=== PATIENT | female | born 1935 | race Caucasian/White ===

== ENCOUNTER 2019-03-12 06:56 | Inpatient (IN) | payer MEDICARE, OTHER ==
[2019-03-12] MEDS ORDERED: PROPOFOL 200 MG/20 ML VIAL ONE (09:37)
[2019-03-12] MEDS ORDERED: PHENYLEPHRINE-NS 100 MCG/ML 10 ML SYRINGE ONE (09:37)
--- NOTE | 2019-03-12 10:09 | RAD ---
XR Chest 1 View Portable History: Line placement Comparison: CTA March 12, 2019 Findings: There is abnormal elevation of the left hemidiaphragm. Severe scoliotic changes. Right IJ c entral venous catheter tip sits at the inferior SVC. No pneumothorax. Impression: Uncomplicated placement right IJ central venous catheter.
[2019-03-12] MEDS ORDERED: Bisacodyl 5 MG TAB PO PRN (11:21)
[2019-03-12] MEDS ORDERED: Ondansetron PF 4 MG/2 ML Vial IVP PRN (11:21)
--- NOTE | 2019-03-12 13:37 | HP ---
PRIMARY CARE PROVIDER: None. CHIEF COMPLAINT: Abdominal pain. HISTORY OF PRESENT ILLNESS: Ms. Cazares is a pleasant 83-year-old lady, who was seen at [facility] on March 12, 2019, following transfer from emergency room at [place]. She reports that she had abdominal pain yesterday starting around 4:00 p.m. She describes it as epigastric, radiating around her body to her flanks. She describes it as sharp, accompanied by nausea. She reports vomiting once. She denies any fever. She denies any chest pain. She reports that the pain is worse with moving around and lying still makes the pain better. It is currently 6/10. REVIEW OF SYSTEMS: All systems were reviewed and found to be negative except for the pertinent positives mentioned above. PAST MEDICAL HISTORY: Coronary artery disease, nephrolithiasis, and scoliosis. PAST SURGICAL HISTORY: Coronary artery bypass graft and section. FAMILY HISTORY: No family history of premature coronary artery disease. SOCIAL HISTORY: No history of tobacco use, alcohol use, or recreational drug use. ALLERGIES: NO KNOWN DRUG ALLERGIES. CURRENT MEDICATIONS: 1. Aspirin 81 mg daily. 2. Ferrous sulfate. PHYSICAL EXAMINATION: GENERAL: On examination, Ms. Cazares is awake and alert, not in acute distress. VITAL SIGNS: Blood pressure is 100/59, pulse 91, respiratory rate 16, and oxygen saturation 98% on room air. Earlier, she had blood pressure of 85/57, pulse 121, and respiratory rate of 24. EYES: No scleral icterus. No conjunctival pallor. ENT: Moist mucosal membranes. No oropharyngeal erythema or exudates. NECK: Supple, nontender. Trachea is midline. RESPIRATORY: Accessory muscles of breathing are not active. Chest wall movements are symmetric bilaterally. Lungs are clear to auscultation without wheeze, rhonchi, or crepitations. CARDIOVASCULAR: S1 and S2 are heard, regular. Peripheral pulses palpable. ABDOMEN: Soft, nontender. Bowel sounds heard. NEUROLOGIC: Cranial nerves II through XII are intact. MUSCULOSKELETAL: Power is 5/5 in all 4 extremities. SKIN: No rashes. LYMPHATIC: No cervical lymphadenopathy. PSYCHIATRIC: Normal mood. Normal affect. The patient is oriented to person, place, and time. DIAGNOSTIC DATA: Ms. Cazares's labs and investigations were reviewed. I reviewed her electrocardiogram, which shows sinus tachycardia, no ST changes to suggest an acute coronary syndrome. I also reviewed her chest x-ray, which does not show any pulmonary infiltrates. CT scan of the abdomen and pelvis without contrast showed left-sided hydronephrosis and hydroureter without definite obstructing calculus. She also had diverticulosis, without evidence of diverticulitis. CT dissection protocol showed extensive atherosclerosis without major branch occlusion of the aorta. She has short segment moderate stenosis of the infrarenal abdominal aorta due to noncalcified plaque. She also has left-sided hydronephrosis and slightly decreased enhancement of the right kidney when compared to the contralateral side secondary to obstruction. She has white count with 14,700 white cells, of which 80% are neutrophils and 17% are band neutrophils. Hemoglobin and platelet count are normal. D-dimer is elevated at 2.65. She has normal sodium, normal potassium, and normal creatinine. Lactic acid is elevated at 2.4. LFTs are unremarkable. Urinalysis is positive for blood, nitrite, and leukocyte esterase. ASSESSMENT AND PLAN: Ms. Cazares is a pleasant 83-year-old lady, who was seen at [facility] on March 12, 2019. Her problem list includes: 1. Severe sepsis: Ms. Cazares is presenting with severe sepsis secondary to urinary tract infection. She will be admitted to the hospital for further management. Initially, there was concern for septic shock because she was not responding to fluid resuscitation. She had a central line placed. However, she has not needed pressors. 2. Urinary tract infection: The patient will be treated with ceftriaxone. 3. Hydronephrosis: The patient has hydronephrosis on the left side. Urology Service will be consulted for opinion and help with management. 4. Coronary artery disease: This appears to be stable. Many thanks for allowing me to participate in your the patient's care. Please feel free to contact me with any questions or concerns. LEVEL OF RISK: High. LEVEL OF COMPLEXITY: High. Job ID: [id number]
--- NOTE | 2019-03-12 13:49 | CON ---
DATE OF CONSULTATION: 03/12/2019 HISTORY OF PRESENT ILLNESS: Ms. Cazares is an 83-year-old female, who I have been asked to see by the Hospitalist Service for evaluation regarding sepsis. She is actually not in septic shock. She has been given fluids and her blood pressure is now normalized. She is conversant. She initially had some abdominal side pain. Now, her pain limits her neck and she feels much better after receiving fluids. PAST MEDICAL HISTORY: Remarkable for, 1. 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 Those rods fractured about 2 years ago. 2. Coronary artery disease, requiring bypass grafting surgery. SOCIAL HISTORY: Nonsmoker. Does not consume alcohol. Does not use illicit drugs. ALLERGIES: NONE. MEDICATIONS: Prior to admission, baby aspirin and some [id number] medication. REVIEW OF SYSTEMS: Otherwise, negative. PHYSICAL EXAMINATION: VITAL SIGNS: Temperature 99.7, pulse now in the 90s, blood pressure 139/79, and O2 saturation in the mid 90s on room air. GENERAL: She is awake, alert, and in no distress. HEENT: Unremarkable. NECK: She has a right IJ central line in place. LUNGS: She has diminished breath sounds on the left side, clear on the right. She has old midsternal wound, which is well healed. CARDIAC: S1 and S2. Regular. ABDOMEN: Soft and nontender. EXTREMITIES: No edema. IMAGING DATA: Her chest x-ray is noted for a profoundly elevated left hemidiaphragm with extensive kyphoscoliosis with all structures twisted toward the right. LABORATORY DATA: White blood cell count 14.7, hematocrit 48.2, and platelet count 221, bands 17% noted. Sodium 143, potassium 3.8, chloride 110, CO2 of 20, BUN 16, and creatinine 0.9. Urinalysis demonstrates large number of white blood cells. ASSESSMENT: Urosepsis. RECOMMENDATIONS: I would recommend IV antibiotics and IV fluids. Did not require vasopressors at this time. Job ID: [id number]
[2019-03-12] MEDS: Sodium Chloride 0.9% 1,000 ML IV SCH ×2 (16:04→21:26)
[2019-03-12] MEDS: cefTRIAXone\\ROCEPHIN 1 GM in Sodium Chloride 0.9% 100 ML IVPB SCH (16:08)
[2019-03-12 16:19] VITALS: BMI 25.6
[2019-03-12] MEDS ORDERED: Iothalamate Meglumine 60% 50 ML VIAL FS ONE (17:23)
[2019-03-12] MEDS ORDERED: Fentanyl 100 MCG/2 ML VIAL ONE ×2 (17:35→19:20)
[2019-03-12] MEDS ORDERED: Promethazine HCl 25 MG/ML VIAL SLOW IVP PRN (19:11)
[2019-03-12] MEDS ORDERED: Ondansetron HCl/PF 4 MG/2 ML Vial IVP PRN (19:11)
[2019-03-12] MEDS ORDERED: Promethazine HCl 25 MG/ML VIAL IM PRN (19:11)
[2019-03-12] MEDS ORDERED: Ondansetron PF 4 MG/2 ML Vial ONE (19:34)
[2019-03-12] MEDS ORDERED: Acetaminophen 500 MG TAB PO SCH (22:00)
--- NOTE | 2019-03-13 01:19 | CON ---
DATE OF CONSULTATION: 03/12/2019 CHIEF COMPLAINT: Gross hematuria, abdominal pain, vomiting. HISTORY OF PRESENT ILLNESS: Ms. Cazares is an 83-year-old female who presented to [place] [facility] with abdominal pain. The pain was from the mid abdomen, radiating both to the right and left flanks. She also had some nausea. On evaluation in the emergency room, she was noted to have some mild hypotension with a systolic blood pressure of 100. Urinalysis was abnormal, consistent with urinary tract infection. She underwent CT scan imaging that demonstrated left-sided hydronephrosis. The left ureter did not appear dilated and there were no obstructing stones seen. For this reason, urologic consultation was obtained. She denies any prior urologic history. She has not had stone disease in the past. She has had no prior urologic surgery. PAST MEDICAL HISTORY: Coronary artery disease, scoliosis. PAST SURGICAL HISTORY: Coronary artery bypass graft, , Diaz nicolasa placement for scoliosis. FAMILY HISTORY: Noncontributory. SOCIAL HISTORY: She is . Her is 89 years old. She is a nonsmoker. Denies excessive alcohol use. ALLERGIES: NO KNOWN DRUG ALLERGIES. REVIEW OF SYSTEMS: RESPIRATORY: She denies any new changes in her breathing pattern. She does have long-term breathing issues from her scoliosis. She has never been a smoker. CARDIOVASCULAR: Denies chest pain or palpitations. GASTROINTESTINAL: Denies chronic constipation or diarrhea. GENITOURINARY: Please see history of present illness. NEUROLOGIC: No focal symptoms to suggest stroke. PHYSICAL EXAM: VITALS: Temperature- 100.2 Blood Pressure 138/82 Pulse - 100 ABDOMEN: soft, no tender, no peritoneal signs CHEST: no wheezing EXTREMITIES: no edema PELVIC: deferred LABORATORY DATA: Urinalysis demonstrates 3+ bacteria, large leukocyte esterase positive, 11-20 white cells, large amount of blood. CBC, white count 14.7, hematocrit 48.2, hemoglobin is 15.2. Chemistry, creatinine 0.96. IMPRESSION: Ms. Cazares is an 83-year-old female with signs and symptoms suggesting urinary tract infection. Cultures have been sent. She has been given vancomycin, gentamicin and ceftriaxone prior to transfer to [facility]. CT scan demonstrates left-sided hydronephrosis of unclear etiology. She is not having colicky left-sided flank pain at this time. There is no evidence of stones. Because of the signs of infection, I have recommended a left ureteral stent placement. The procedure, potential limitations, alternatives, and complications have been discussed with her. PLAN: Cystoscopy, left double-J stent placement. Job ID: [id number] MTDD
--- NOTE | 2019-03-13 02:31 | OP ---
DATE OF PROCEDURE: 03/12/2019 PREOPERATIVE DIAGNOSES: Left hydronephrosis, bacteriuria. POSTOP DIAGNOSES: Left hydronephrosis, bacteriuria. PROCEDURE: Cystoscopy, left double-J stent placement. ANESTHESIA: General. INDICATIONS: Ms. Cazares is an 83-year-old female with left-sided hydronephrosis consistent with urinary tract infection. She presented to [place] ER with abdominal pain, nausea and vomiting. CT scan demonstrated left-sided hydronephrosis. There was no obvious stone seen. She is being brought to the operating room for drainage with left double-J stent placement. DETAILS OF PROCEDURE: Patient given general anesthesia and IV antibiotics. She was sterilely prepped and draped in a lithotomy position. Cystoscope was passed into the bladder. Bladder was examined in its entirety. There were no mucosal lesions noted. The left ureteral orifice was intubated with a floppy tip guidewire, which was passed cephalad under fluoroscopic control. Retrograde pyelography was utilized to outline the ureter, which was somewhat torturous, because of her long-standing scoliosis. She had left-sided hydronephrosis with persistent contrast in the left renal pelvis from her contrast CT scan hours prior. Double-J stent was passed into the left ureter and coiled in the left renal pelvis and the bladder as determined fluoroscopically and cystoscopically. The stent was a 4.8 x 24 cm. The bladder was drained. Cystoscope was removed. The patient tolerated procedure well. She was transported from the operative room to recovery room in stable condition. COMPLICATION: None. ESTIMATED BLOOD LOSS: Minimal. DISPOSITION: 1. The patient to be treated with antibiotic therapy based on culture results. 2. She will need to return to the operating room in 2-4 weeks for stent removal and flexible ureteroscopy to determine the source of her hydronephrosis. Job ID: [id number]
[2019-03-13] MEDS: Acetaminophen 325 MG TAB PO PRN ×4 (03:46→23:31)
[2019-03-13 04:21] LABS: #Monocytes 0.8 thou/uL (0.11-0.59); #Neutrophils 12.1 thou/uL (1.40-6.50); %Basophils 0.1 % (0.0-1.0); %Eosinophils 0.2 % (0.0-10.0); %Lymphocytes 7.3 % (21.0-51.0); %Monocytes 5.7 % (0.0-10.0); %Neutrophils 86.7 % (42.0-75.0); Hemoglobin 11.6 g/dL (12.0-16.0); Mean Corpuscular HGB CONC 34.6 g/dL (32.0-36.0); Mean Corpuscular Hemoglobin 32.1 pg (27.0-31.0); Mean Corpuscular Volume 92.7 fL (78.0-98.0); Mean Platelet Volume 8.3 fL (7.4-10.4); Platelet Count 135 thou/uL (130-400); RBC Distribution Width 13.5 % (11.5-14.5); Red Blood Cell (RBC) Count 3.62 mill/uL (4.20-5.40); White Blood Cell (WBC) Count 13.9 thou/uL (4.8-10.8)
[2019-03-13 04:39] LABS: Anion Gap 10 mmol/L (10-20); BUN (Urea Nitrogen) 15 mg/dL (9.8-20.1); Calc. Creatinine Clearance 52 mL/min (70-130); Carbon Dioxide 21 mmol/L (23-31); Chloride 114 mmol/L (98-107); Estimated GFR-MDRD 72; Glucose 80 mg/dL (83-110); Potassium 4.3 mmol/L (3.5-5.1); Sodium 141 mmol/L (136-145)
--- NOTE | 2019-03-13 07:31 | RAD ---
EXAM: XR IVP Retrograde PROVIDED CLINICAL HISTORY: Hydronephrosis COMPARISON: CT 03/12/2019 358 AM FINDINGS: Multiple spot fluoroscopic images of the abdomen are submitted, demonstrating persistent contrast mat erial within a dilated left renal pelvis. Retrograde opacification of the left ureter demonstrates a critical narrowing in the region of the proximal left ureter/UPJ junction. The evaluation on the [facility] submitted images is limited due to respiratory motion. Please correlate with real-time findings. Subsequent images demonstrate placement of left ureteral stent. IMPRESSION: As above.
[2019-03-13] MEDS: Sodium Chloride 0.9% 1,000 ML IV SCH ×3 (08:40→23:29)
[2019-03-13] MEDS: Enoxaparin Sodium 40 MG/0.4 ML SYRINGE SC SCH (09:22)
--- NOTE | 2019-03-13 10:07 | PRG ---
DATE OF SERVICE: 03/13/2019 SUBJECTIVE: The patient feels better today. She had a stent placed yesterday. OBJECTIVE: VITAL SIGNS: Temperature 97.9, pulse 90, respirations 18, O2 saturations 95% on 2 L, and blood pressure 116/62. HEENT: Unremarkable. NECK: No adenopathy or JVD. She has a right IJ central line in place. CARDIAC: S1 and S2. Regular. LUNGS: Clear. ABDOMEN: Soft. EXTREMITIES: No edema. LABORATORY DATA: White blood count 13.9, hematocrit 33.6, and platelet count 135. Sodium 141, potassium 4.3, chloride 114, CO2 of 21, BUN 15, creatinine 0.7, and glucose 80. She is growing out E coli from her cultures. ASSESSMENT: Escherichia coli/urosepsis. PLAN: I would recommend discontinuing the central line as soon as possible. Continue the antibiotics. No further Pulmonary recommendations. We will sign off. Job ID: [id number]
[2019-03-13] MEDS: cefTRIAXone\\ROCEPHIN 1 GM in Sodium Chloride 0.9% 100 ML IVPB SCH (11:18)
--- NOTE | 2019-03-13 13:47 | PDOC.HOSPP ---
- Subjective Encounter Date: 03/13/19 Encounter Time: 07:20 Subjective: Pt seen for followup re: UTI. feels better, no complaints. - Objective Vital Signs & Weight: Vital Signs (12 hours) Temp Pulse Resp BP Pulse Ox 03/13/19 11:42 98.4 F 100 25 H 131/72 98 03/13/19 07:38 97.9 F 90 18 116/62 95 03/13/19 03:47 98.5 F 98 18 105/55 L 95 Weight Weight 127 lb I&O: 03/12/19 03/13/19 03/14/19 06:59 06:59 06:59 Intake Total 1000 Output Total 675 Balance 325 Result Diagrams: 03/13/19 03:31 03/13/19 03:31 Additional Labs: Labs and MARs reviewed by me EKG Reviewed by me: Yes (Tele: NSR) Hospitalist ROS - Review of Systems Cardiovascular: denies: chest pain, palpitations, orthopnea, paroxysmal noc. dyspnea, edema, light headedness Gastrointestinal: denies: nausea, vomiting, abdominal pain, diarrhea, constipation, melena, hematochezia - Medication Medications: Active Medications Generic Name Dose Route Start Last Admin Trade Name Freq PRN Reason Stop Dose Admin Acetaminophen 650 mg 03/12/19 21:48 03/13/19 11:18 Tylenol PO 650 mg Q6H PRN Administration Fever>101/(Mi/Mod/Sev) Pain Enoxaparin Sodium 40 mg 03/13/19 09:00 03/13/19 09:22 Lovenox SC 40 mg 0900 RAMILA Administration Ceftriaxone Sodium 1 gm/ 100 mls @ 200 mls/hr 03/12/19 12:00 03/13/19 11:18 Sodium Chloride IVPB 100 mls 1200 RAMILA Administration Sodium Chloride 1,000 mls @ 100 mls/hr 03/12/19 11:30 03/13/19 08:40 Normal Saline 0.9% IV Not Given .Q10H RAMILA - Exam General Appearance: NAD Eye: anicteric sclera ENT: moist mucosa Neck: supple Heart: RRR Respiratory: CTAB Gastrointestinal: soft, non-tender Extremities: no edema Skin: no rashes Musculoskeletal - other findings: scoliosis Psychiatric: normal affect, normal behavior Hosp A/P (1) UTI (urinary tract infection) Status: Acute (2) Hydronephrosis Code(s): N13.30 - UNSPECIFIED HYDRONEPHROSIS Status: Acute (3) CAD (coronary artery disease) Code(s): I25.10 - ATHSCL HEART DISEASE OF [place] CORONARY ARTERY W/O ANG PCTRS Status: Chronic (4) Sepsis Code(s): A41.9 - SEPSIS, UNSPECIFIED ORGANISM Status: Resolved - Plan plan discussed w/ family, continue antibiotics, out of bed/ambulate continue ceftriaxone, follow urine culture. s/p ureteric stent. CAD stable. Mobilize pt. Transfer to medical floor.
[2019-03-14 04:38] LABS: #Eosinphils 0.1 thou/uL (0.0-0.7); #Lymphocytes 0.7 thou/uL (1.20-3.40); #Monocytes 0.8 thou/uL (0.11-0.59); %Basophils 0.4 % (0.0-1.0); %Eosinophils 1.4 % (0.0-10.0); %Lymphocytes 7.4 % (21.0-51.0); %Monocytes 8.2 % (0.0-10.0); %Neutrophils 82.7 % (42.0-75.0); Hemoglobin 11.2 g/dL (12.0-16.0); Mean Corpuscular HGB CONC 33.5 g/dL (32.0-36.0); Mean Corpuscular Hemoglobin 31.1 pg (27.0-31.0); Mean Corpuscular Volume 92.7 fL (78.0-98.0); Mean Platelet Volume 8.1 fL (7.4-10.4); Platelet Count 132 thou/uL (130-400); RBC Distribution Width 13.4 % (11.5-14.5); Red Blood Cell (RBC) Count 3.61 mill/uL (4.20-5.40); White Blood Cell (WBC) Count 9.7 thou/uL (4.8-10.8)
[2019-03-14 05:23] LABS: Anion Gap 10 mmol/L (10-20); BUN (Urea Nitrogen) 10 mg/dL (9.8-20.1); Calc. Creatinine Clearance 57 mL/min (70-130); Calcium 8.4 mg/dL (7.8-10.44); Carbon Dioxide 23 mmol/L (23-31); Chloride 111 mmol/L (98-107); Estimated GFR-MDRD 80; Glucose 73 mg/dL (83-110); Potassium 3.9 mmol/L (3.5-5.1); Sodium 140 mmol/L (136-145)
[2019-03-14] MEDS: Enoxaparin Sodium 40 MG/0.4 ML SYRINGE SC SCH (08:21)
[2019-03-14] MEDS: Acetaminophen 325 MG TAB PO PRN (08:21)
[2019-03-14] MEDS ORDERED: Fioricet 325/50/40 mg Tablet PO SCH (10:15)
[2019-03-14] MEDS: cefTRIAXone\\ROCEPHIN 1 GM in Sodium Chloride 0.9% 100 ML IVPB SCH (10:59)
[2019-03-14] MEDS: Sodium Chloride 0.9% 1,000 ML IV SCH ×2 (11:00→23:15)
--- NOTE | 2019-03-14 16:41 | PDOC.HOSPP ---
- Subjective Encounter Date: 03/14/19 Encounter Time: 08:20 Subjective: Pt seen for followup re: UTI. Feels better. has headache. - Objective Vital Signs & Weight: Vital Signs (12 hours) Temp Pulse Resp BP Pulse Ox 03/14/19 12:00 97.5 F L 87 22 H 127/79 98 03/14/19 08:11 98.5 F 92 16 136/76 96 Weight Weight 131 lb 6.4 oz I&O: 03/13/19 03/14/19 03/15/19 06:59 06:59 06:59 Intake Total 1000 1380 120 Output Total 675 1450 550 Balance 325 -01 -269 Result Diagrams: 03/14/19 04:16 03/14/19 04:16 Additional Labs: Labs and MARs reviewed by me. Hospitalist ROS - Review of Systems Cardiovascular: denies: chest pain, palpitations, orthopnea, paroxysmal noc. dyspnea, edema, light headedness Gastrointestinal: denies: nausea, vomiting, abdominal pain, diarrhea, constipation, melena, hematochezia - Medication Medications: Active Medications Generic Name Dose Route Start Last Admin Trade Name Freq PRN Reason Stop Dose Admin Acetaminophen 650 mg 03/12/19 21:48 03/14/19 08:21 Tylenol PO 650 mg Q6H PRN Administration Fever>101/(Mi/Mod/Sev) Pain Enoxaparin Sodium 40 mg 03/13/19 09:00 03/14/19 08:21 Lovenox SC 40 mg 0900 RAMILA Administration Ceftriaxone Sodium 1 gm/ 100 mls @ 200 mls/hr 03/12/19 12:00 03/14/19 10:59 Sodium Chloride IVPB 100 mls 1200 RAMILA Administration Sodium Chloride 1,000 mls @ 100 mls/hr 03/12/19 11:30 03/14/19 11:00 Normal Saline 0.9% IV 1,000 mls .Q10H RAMILA Administration - Exam General Appearance: NAD, awake alert Eye: anicteric sclera ENT: normocephalic atraumatic, moist mucosa Neck: supple Heart: RRR Respiratory: CTAB Gastrointestinal: soft, non-tender Psychiatric: normal affect, normal behavior Hosp A/P (1) UTI (urinary tract infection) Status: Acute (2) Hydronephrosis Code(s): N13.30 - UNSPECIFIED HYDRONEPHROSIS Status: Acute (3) Bacteremia Code(s): R78.81 - BACTEREMIA Status: Acute (4) CAD (coronary artery disease) Code(s): I25.10 - ATHSCL HEART DISEASE OF [place] CORONARY ARTERY W/O ANG PCTRS Status: Chronic (5) Sepsis Code(s): A41.9 - SEPSIS, UNSPECIFIED ORGANISM Status: Resolved - Plan continue antibiotics, PT/OT Switch to ciprofloxacin. E. coli bacteremia and UTI. CAD stable. PRN Fiorinal for headache.
[2019-03-14] MEDS: Fioricet 325/50/40 mg Tablet PO PRN ×2 (17:48→23:51)
[2019-03-14] MEDS: Ciprofloxacin 500 MG TAB PO SCH (20:38)
[2019-03-15] MEDS: Ciprofloxacin 500 MG TAB PO SCH (06:25)
[2019-03-15] MEDS: Sodium Chloride 0.9% 1,000 ML IV SCH (06:30)
[2019-03-15 07:43] LABS: #Eosinphils 0.2 thou/uL (0.0-0.7); #Lymphocytes 0.7 thou/uL (1.20-3.40); #Monocytes 0.5 thou/uL (0.11-0.59); #Neutrophils 4.8 thou/uL (1.40-6.50); %Basophils 0.5 % (0.0-1.0); %Eosinophils 3.1 % (0.0-10.0); %Monocytes 7.8 % (0.0-10.0); %Neutrophils 77.6 % (42.0-75.0); Hemoglobin 11.4 g/dL (12.0-16.0); Mean Corpuscular HGB CONC 34.6 g/dL (32.0-36.0); Mean Corpuscular Hemoglobin 31.9 pg (27.0-31.0); Mean Corpuscular Volume 92.1 fL (78.0-98.0); Mean Platelet Volume 8.1 fL (7.4-10.4); Platelet Count 149 thou/uL (130-400); Red Blood Cell (RBC) Count 3.57 mill/uL (4.20-5.40); White Blood Cell (WBC) Count 6.2 thou/uL (4.8-10.8)
[2019-03-15 07:59] VITALS: BP 159/84; TEMP 97.7
[2019-03-15 08:05] LABS: Anion Gap 12 mmol/L (10-20); BUN (Urea Nitrogen) 7 mg/dL (9.8-20.1); Calc. Creatinine Clearance 63 mL/min (70-130); Calcium 8.3 mg/dL (7.8-10.44); Carbon Dioxide 22 mmol/L (23-31); Chloride 112 mmol/L (98-107); Estimated GFR-MDRD 86; Glucose 79 mg/dL (83-110); Potassium 4.1 mmol/L (3.5-5.1); Sodium 142 mmol/L (136-145)
[2019-03-15] MEDS: Acetaminophen 325 MG TAB PO PRN (08:19)
[2019-03-15] MEDS: Enoxaparin Sodium 40 MG/0.4 ML SYRINGE SC SCH (08:19)
--- NOTE | 2019-03-15 14:05 | DIS ---
DATE OF ADMISSION: 03/12/2019 DATE OF DISCHARGE: 03/14/2019 PRIMARY CARE PROVIDER: Unknown. DISCHARGE DIAGNOSES: 1. Sepsis. 2. Sepsis secondary to urinary tract infection. 3. Bacteremia. 4. Hydronephrosis. DISCHARGE CONDITION: Condition of patient on the day of discharge stable. I assessed Ms. Cazares on the day of discharge. She denies any chest pain or shortness of breath. Vital signs are stable. S1 and S2 are heard, regular. Lungs are clear to auscultation bilaterally. CONSULTATIONS: Consultations during this hospitalization: Urology, Dr. Coats , and Pulmonary and Critical Care Medicine, Dr. Russo. HOSPITAL COURSE: Ms. Cazares is a pleasant 83-year-old lady, who was admitted to [facility] on March 12, 2019, for sepsis secondary to urinary tract infection. She was also found to have hydronephrosis. She was seen by Urology Service and underwent cystoscopy and left double-J stent placement on March 12, 2019. She will need to return to operating room in 2-4 weeks for stent removal and flexible ureteroscopy to determine the source of her hydronephrosis. Two out of 2 blood cultures and urine culture grew Escherichia coli that was pansensitive. She has been switched to ciprofloxacin and is being discharged home in a stable condition. DISCHARGE FOLLOWUP: Post acute care followup with primary care provider in 3 days' time and with Urology Service in 2-3 weeks' time. DISCHARGE MEDICATIONS: 1. Aspirin 81 mg daily. 2. Aspirin/acetaminophen as needed. 3. Iron sulfate 325 mg daily. 4. Multivitamins 1 tablet daily. 5. Ciprofloxacin 500 mg 2 times a day for 11 more days. DISCHARGE DESTINATION: Home. DIET: Regular. ACTIVITY: Ad flaco. TIME SPENT: Total amount of time spent coordinating this discharge: 32 minutes. Job ID: [id number] MTDD
== END 2019-03-15 14:44 | disposition home or self-care (01) | DRG 854 ==
LOC: ERS 06:56 → ERHOLD 08:43 → 2NO 15:49 → T4-B 03-14 10:27
PROVIDERS: ADMIT Internal Medicine; ATTEND Internal Medicine
PROC: 0T778DZ Dilation of Left Ureter with Intraluminal Device, Via Natural or Artificial Opening Endoscopic (ICD-10-PCS; principal; 2019-03-12)
PROC: BT1F1ZZ Fluoroscopy of Left Kidney, Ureter and Bladder using Low Osmolar Contrast (ICD-10-PCS; 2019-03-12)
DX: A41.51 Sepsis due to Escherichia coli [E. coli] (principal); N13.6 Pyonephrosis; R65.20 Severe sepsis without septic shock; I25.10 Atherosclerotic heart disease of native coronary artery without angina pectoris; M41.9 Scoliosis, unspecified; B96.20 Unspecified Escherichia coli [E. coli] as the cause of diseases classified elsewhere; Z95.1 Presence of aortocoronary bypass graft; Z79.82 Long term (current) use of aspirin
CPT/HCPCS: 36415; 71045; 74420; 80048; 85025; 87086; J0696; J1650; J2405; J2704; J3010; J3490

== ENCOUNTER 2023-01-12 09:34 | Inpatient (IN) | payer MEDICARE ==
[2023-01-12] MEDS ORDERED: Ondansetron ODT 4 MG TAB PO PRN (09:57)
[2023-01-12] MEDS ORDERED: Acetaminophen 325 MG TAB PO PRN (09:57)
[2023-01-12] MEDS: Sodium Chloride 0.9% 1,000 ML IV SCH ×2 (10:00→23:08)
[2023-01-12] MEDS ORDERED: Fleet Saline Enema 133 ML BOT PR SCH (11:15)
[2023-01-12 13:02] LABS: Troponin I 0.028 ng/mL (< 0.028)
[2023-01-12 13:12] VITALS: BMI 18.6
[2023-01-12] MEDS ORDERED: Meropenem 1 GM in Sodium Chloride 0.9% 100 ML IVPB SCH (14:00)
[2023-01-12 16:03] LABS: Lactic Acid 1.9 mmol/L (0.5-2.2)
[2023-01-12] MEDS: Meropenem 500 MG in Sodium Chloride 0.9% 100 ML IVPB SCH (16:36)
[2023-01-12] MEDS ORDERED: Sodium Chloride 0.9% 500 ML IV SCH (21:45)
[2023-01-12] MEDS ORDERED: HYDROcodone/Acetaminophen 5/325 mg Tablet PO PRN (22:16)
[2023-01-12] MEDS ORDERED: Morphine 2 MG/ML VIAL SLOW IVP SCH (22:30)
[2023-01-13] MEDS ORDERED: Morphine 2 MG/ML VIAL SLOW IVP SCH (03:15)
[2023-01-13 03:29] LABS: #Basophils 0.1 thou/uL (0.0-0.2); #Monocytes 1.4 thou/uL (0.11-0.59); #Neutrophils 13.4 thou/uL (1.40-6.50); %Basophils 0.3 % (0.0-1.0); %Lymphocytes 7.9 % (21.0-51.0); %Monocytes 8.7 % (0.0-10.0); %Neutrophils 80.9 % (42.0-75.0); Hematocrit 39.5 % (36.0-47.0); Hemoglobin 12.9 g/dL (12.0-16.0); Mean Corpuscular HGB CONC 32.7 g/dL (32.0-36.0); Mean Platelet Volume 9.7 fL (7.4-10.4); Platelet Count 416 10x3/uL (130-400); Red Blood Cell (RBC) Count 4.16 mill/uL (4.20-5.40); White Blood Cell (WBC) Count 16.5 10x3/uL (4.8-10.8)
[2023-01-13 03:46] LABS: Anion Gap 13 mmol/L (10-20); BUN (Urea Nitrogen) 27 mg/dL (9.8-20.1); Calc. Creatinine Clearance 33 mL/min (70-130); Carbon Dioxide 14 mmol/L (23-31); Chloride 118 mmol/L (98-107); Potassium 4.1 mmol/L (3.5-5.1); Sodium 141 mmol/L (136-145)
[2023-01-13 03:47] LABS: ALT (SGPT) 9 U/L (8-55); AST (SGOT) 13 U/L (5-34); Albumin 3.1 g/dL (3.4-4.8); Alkaline Phosphatase 72 U/L (40-110); Bilirubin, Total 0.4 mg/dL (0.2-1.2); Estimated GFR 72; Globulin 2.1 g/dL (2.4-3.5); Glucose 110 mg/dL (83-110); Magnesium 1.9 mg/dL (1.6-2.6); Protein, Total 5.2 g/dL (5.8-8.1)
[2023-01-13] MEDS: Meropenem 500 MG in Sodium Chloride 0.9% 100 ML IVPB SCH (04:28)
[2023-01-13] MEDS: Polyethylene Glycol 3350 17 GM Packet PO SCH ×2 (10:07→21:46)
[2023-01-13] MEDS: Pantoprazole 40 MG VIAL IVP SCH (10:07)
[2023-01-13] MEDS: Bisacodyl 5 MG TAB PO SCH ×2 (10:07→22:06)
[2023-01-13] MEDS: Sodium Chloride 0.9% 1,000 ML IV SCH ×2 (10:11→21:30)
[2023-01-13] MEDS: Acetaminophen 500 MG TAB PO PRN ×2 (13:15→23:37)
[2023-01-13] MEDS: Bisacodyl 10 MG SUPP PR SCH ×2 (14:26→23:37)
[2023-01-13] MEDS: Fleet Saline Enema 133 ML BOT PR SCH ×2 (15:23→23:39)
[2023-01-13] MEDS: Phenazopyridine HCl 100 MG TAB PO SCH ×3 (15:39→20:10)
[2023-01-13] MEDS: Meropenem 1 GM in Sodium Chloride 0.9% 100 ML IVPB SCH (18:24)
[2023-01-14 04:45] LABS: #Eosinphils 0.1 thou/uL (0.0-0.7); #Monocytes 0.9 thou/uL (0.11-0.59); #Neutrophils 7.3 thou/uL (1.40-6.50); %Basophils 0.2 % (0.0-1.0); %Eosinophils 0.7 % (0.0-10.0); %Lymphocytes 14.8 % (21.0-51.0); %Monocytes 8.5 % (0.0-10.0); %Neutrophils 72.5 % (42.0-75.0); Hematocrit 31.7 % (36.0-47.0); Hemoglobin 10.3 g/dL (12.0-16.0); Mean Corpuscular HGB CONC 32.5 g/dL (32.0-36.0); Mean Corpuscular Hemoglobin 30.7 pg (27.0-31.0); Mean Corpuscular Volume 94.6 fl (78.0-98.0); Mean Platelet Volume 9.8 fL (7.4-10.4); Platelet Count 376 10x3/uL (130-400); RBC Distribution Width 16.2 % (11.5-14.5); Red Blood Cell (RBC) Count 3.35 mill/uL (4.20-5.40); White Blood Cell (WBC) Count 10.1 10x3/uL (4.8-10.8)
[2023-01-14 05:09] LABS: Albumin 2.9 g/dL (3.4-4.8); Anion Gap 12 mmol/L (10-20); BUN (Urea Nitrogen) 17 mg/dL (9.8-20.1); BUN/Creatinine Ratio 23.29; Calc. Creatinine Clearance 36 mL/min (70-130); Carbon Dioxide 16 mmol/L (23-31); Chloride 122 mmol/L (98-107); Estimated GFR 81; Glucose 85 mg/dL (83-110); Phosphorus 2.2 mg/dL (2.3-4.7); Potassium 3.7 mmol/L (3.5-5.1); Sodium 146 mmol/L (136-145)
[2023-01-14] MEDS: Meropenem 1 GM in Sodium Chloride 0.9% 100 ML IVPB SCH ×2 (05:43→17:14)
[2023-01-14] MEDS: Bisacodyl 10 MG SUPP PR SCH ×3 (06:07→23:22)
[2023-01-14] MEDS: Fleet Saline Enema 133 ML BOT PR SCH ×2 (06:21→15:10)
[2023-01-14] MEDS: Acetaminophen 500 MG TAB PO PRN ×2 (06:41→18:39)
[2023-01-14] MEDS: Sodium Chloride 0.9% 1,000 ML IV SCH (06:42)
[2023-01-14] MEDS: Pantoprazole 40 MG VIAL IVP SCH (08:48)
[2023-01-14] MEDS: Polyethylene Glycol 3350 17 GM Packet PO SCH ×2 (08:48→21:54)
[2023-01-14] MEDS: Phenazopyridine HCl 100 MG TAB PO SCH ×3 (08:48→18:39)
[2023-01-14] MEDS: Bisacodyl 5 MG TAB PO SCH (08:49)
[2023-01-14] MEDS ORDERED: Electrolyte Replacement Protocol 1 EACH FS SCH (09:45)
[2023-01-14] MEDS ORDERED: Metoprolol Tartrate 5 MG/5 ML VIAL IVP SCH (09:45)
[2023-01-14] MEDS: Lactated Ringer's 1,000 ML IV SCH (10:53)
[2023-01-14 11:06] LABS: Magnesium 1.8 mg/dL (1.6-2.6)
[2023-01-14] MEDS ORDERED: Magnesium 2 GM/50 ML(in water) 2 GM in Premix 1 BAG IVPB SCH (11:30)
[2023-01-15] MEDS: Fleet Saline Enema 133 ML BOT PR SCH ×6 (00:08→20:43)
[2023-01-15] MEDS: Acetaminophen 500 MG TAB PO PRN ×3 (01:26→16:41)
[2023-01-15] MEDS ORDERED: Preparation H Suppository PR PRN (01:27)
[2023-01-15] MEDS: Lactated Ringer's 1,000 ML IV SCH ×2 (02:22→15:37)
[2023-01-15] MEDS: Bisacodyl 10 MG SUPP PR SCH ×3 (03:59→20:43)
[2023-01-15] MEDS: Meropenem 1 GM in Sodium Chloride 0.9% 100 ML IVPB SCH ×2 (04:40→16:40)
[2023-01-15 04:44] LABS: #Basophils 0.1 thou/uL (0.0-0.2); #Eosinphils 0.5 thou/uL (0.0-0.7); #Monocytes 0.7 thou/uL (0.11-0.59); #Neutrophils 6.5 thou/uL (1.40-6.50); %Basophils 0.7 % (0.0-1.0); %Eosinophils 5.3 % (0.0-10.0); %Neutrophils 70.5 % (42.0-75.0); Hematocrit 30.5 % (36.0-47.0); Hemoglobin 9.8 g/dL (12.0-16.0); Mean Corpuscular HGB CONC 32.1 g/dL (32.0-36.0); Mean Corpuscular Hemoglobin 30.3 pg (27.0-31.0); Mean Corpuscular Volume 94.4 fl (78.0-98.0); Mean Platelet Volume 9.9 fL (7.4-10.4); Platelet Count 323 10x3/uL (130-400); RBC Distribution Width 16.3 % (11.5-14.5); Red Blood Cell (RBC) Count 3.23 mill/uL (4.20-5.40); White Blood Cell (WBC) Count 9.2 10x3/uL (4.8-10.8)
[2023-01-15 05:09] LABS: Albumin 2.6 g/dL (3.4-4.8); Anion Gap 10 mmol/L (10-20); BUN (Urea Nitrogen) 12 mg/dL (9.8-20.1); BUN/Creatinine Ratio 16.44; Calc. Creatinine Clearance 36 mL/min (70-130); Calcium 7.7 mg/dL (7.8-10.44); Carbon Dioxide 18 mmol/L (23-31); Chloride 117 mmol/L (98-107); Estimated GFR 81; Glucose 96 mg/dL (83-110); Phosphorus 1.8 mg/dL (2.3-4.7); Potassium 3.2 mmol/L (3.5-5.1); Sodium 142 mmol/L (136-145)
[2023-01-15] MEDS ORDERED: Potassium Chloride 20 MEQ TAB PO SCH (08:00)
[2023-01-15] MEDS ORDERED: Magnesium Oxide 400 MG TAB PO SCH (09:09)
[2023-01-15] MEDS: Pantoprazole 40 MG VIAL IVP SCH (09:18)
[2023-01-15] MEDS: PHOS-NAK 1 PKT PACK PO SCH ×2 (09:18→17:55)
[2023-01-15] MEDS: Polyethylene Glycol 3350 17 GM Packet PO SCH ×2 (09:19→20:42)
[2023-01-15] MEDS: Phenazopyridine HCl 100 MG TAB PO SCH ×3 (15:37→20:07)
[2023-01-15] MEDS ORDERED: traMADol HCl 50 MG TAB PO SCH (21:00)
[2023-01-15] MEDS ORDERED: Lidocaine 4% Patch TD SCH (21:30)
[2023-01-16 04:09] LABS: #Basophils 0.1 thou/uL (0.0-0.2); #Eosinphils 1.3 thou/uL (0.0-0.7); #Monocytes 0.9 thou/uL (0.11-0.59); #Neutrophils 5.4 thou/uL (1.40-6.50); %Basophils 0.7 % (0.0-1.0); %Eosinophils 12.9 % (0.0-10.0); %Lymphocytes 17.6 % (21.0-51.0); %Monocytes 9.7 % (0.0-10.0); %Neutrophils 55.4 % (42.0-75.0); Hematocrit 30.1 % (36.0-47.0); Hemoglobin 9.8 g/dL (12.0-16.0); Mean Corpuscular HGB CONC 32.6 g/dL (32.0-36.0); Mean Corpuscular Hemoglobin 30.9 pg (27.0-31.0); Mean Platelet Volume 9.8 fL (7.4-10.4); Platelet Count 327 10x3/uL (130-400); RBC Distribution Width 16.5 % (11.5-14.5); Red Blood Cell (RBC) Count 3.17 mill/uL (4.20-5.40); White Blood Cell (WBC) Count 9.7 10x3/uL (4.8-10.8)
[2023-01-16 04:35] LABS: Albumin 2.8 g/dL (3.4-4.8); Anion Gap 10 mmol/L (10-20); BUN (Urea Nitrogen) 8 mg/dL (9.8-20.1); BUN/Creatinine Ratio 10.13; Calc. Creatinine Clearance 33 mL/min (70-130); Calcium 7.8 mg/dL (7.8-10.44); Carbon Dioxide 19 mmol/L (23-31); Chloride 115 mmol/L (98-107); Estimated GFR 73; Glucose 123 mg/dL (83-110); Phosphorus 2.3 mg/dL (2.3-4.7); Potassium 4.4 mmol/L (3.5-5.1); Sodium 140 mmol/L (136-145)
[2023-01-16] MEDS: Lactated Ringer's 1,000 ML IV SCH ×2 (05:11→22:46)
[2023-01-16] MEDS: Meropenem 1 GM in Sodium Chloride 0.9% 100 ML IVPB SCH ×2 (05:12→16:36)
[2023-01-16] MEDS: Fleet Saline Enema 133 ML BOT PR SCH (05:13)
[2023-01-16] MEDS: Bisacodyl 10 MG SUPP PR SCH (05:13)
[2023-01-16] MEDS ORDERED: Transdermal Patch Removal TOP SCH (09:30)
[2023-01-16] MEDS: Acetaminophen 500 MG TAB PO PRN ×3 (10:29→22:42)
[2023-01-16] MEDS: Phenazopyridine HCl 100 MG TAB PO SCH ×3 (10:29→18:11)
[2023-01-16] MEDS: Magnesium Oxide 400 MG TAB PO SCH (10:29)
[2023-01-16] MEDS: Polyethylene Glycol 3350 17 GM Packet PO SCH ×2 (10:30→20:14)
[2023-01-16] MEDS: Pantoprazole 40 MG VIAL IVP SCH (10:30)
[2023-01-17 04:32] LABS: #Basophils 0.1 thou/uL (0.0-0.2); #Eosinphils 1.7 thou/uL (0.0-0.7); #Monocytes 0.9 thou/uL (0.11-0.59); #Neutrophils 5.3 thou/uL (1.40-6.50); %Basophils 0.5 % (0.0-1.0); %Eosinophils 17.9 % (0.0-10.0); %Lymphocytes 14.9 % (21.0-51.0); %Monocytes 9.5 % (0.0-10.0); %Neutrophils 54.6 % (42.0-75.0); Hematocrit 28.9 % (36.0-47.0); Hemoglobin 9.5 g/dL (12.0-16.0); Mean Corpuscular HGB CONC 32.9 g/dL (32.0-36.0); Mean Corpuscular Volume 94.4 fl (78.0-98.0); Mean Platelet Volume 9.6 fL (7.4-10.4); Platelet Count 303 10x3/uL (130-400); RBC Distribution Width 16.5 % (11.5-14.5); Red Blood Cell (RBC) Count 3.06 mill/uL (4.20-5.40); White Blood Cell (WBC) Count 9.7 10x3/uL (4.8-10.8)
[2023-01-17] MEDS: Meropenem 1 GM in Sodium Chloride 0.9% 100 ML IVPB SCH ×2 (04:37→15:58)
[2023-01-17 07:08] LABS: Albumin 2.7 g/dL (3.4-4.8); Anion Gap 11 mmol/L (10-20); BUN (Urea Nitrogen) 8 mg/dL (9.8-20.1); BUN/Creatinine Ratio 11.11; Calc. Creatinine Clearance 36 mL/min (70-130); Calcium 8.1 mg/dL (7.8-10.44); Carbon Dioxide 24 mmol/L (23-31); Chloride 108 mmol/L (98-107); Estimated GFR 82; Glucose 113 mg/dL (83-110); Phosphorus 2.4 mg/dL (2.3-4.7); Sodium 139 mmol/L (136-145)
[2023-01-17] MEDS: Magnesium Oxide 400 MG TAB PO SCH (08:52)
[2023-01-17] MEDS: Phenazopyridine HCl 100 MG TAB PO SCH ×3 (08:52→17:12)
[2023-01-17] MEDS: Polyethylene Glycol 3350 17 GM Packet PO SCH ×2 (08:52→20:55)
[2023-01-17] MEDS: Pantoprazole 40 MG VIAL IVP SCH (08:53)
[2023-01-17] MEDS: Acetaminophen 500 MG TAB PO PRN (11:25)
[2023-01-17] MEDS: Lactated Ringer's 1,000 ML IV SCH ×2 (11:27→22:52)
[2023-01-17] MEDS: Calcium Carbonate 500 MG ChewTAB PO PRN ×2 (15:19→21:50)
[2023-01-18] MEDS: Acetaminophen 500 MG TAB PO PRN ×3 (01:14→17:26)
[2023-01-18 04:30] LABS: #Eosinphils 1.4 thou/uL (0.0-0.7); #Monocytes 0.9 thou/uL (0.11-0.59); #Neutrophils 5.8 thou/uL (1.40-6.50); %Basophils 0.3 % (0.0-1.0); %Eosinophils 14.5 % (0.0-10.0); %Lymphocytes 14.3 % (21.0-51.0); %Monocytes 9.3 % (0.0-10.0); %Neutrophils 59.7 % (42.0-75.0); Hematocrit 28.5 % (36.0-47.0); Hemoglobin 9.2 g/dL (12.0-16.0); Mean Corpuscular HGB CONC 32.3 g/dL (32.0-36.0); Mean Corpuscular Hemoglobin 30.9 pg (27.0-31.0); Mean Corpuscular Volume 95.6 fl (78.0-98.0); Mean Platelet Volume 9.6 fL (7.4-10.4); Platelet Count 282 10x3/uL (130-400); RBC Distribution Width 16.5 % (11.5-14.5); Red Blood Cell (RBC) Count 2.98 mill/uL (4.20-5.40); White Blood Cell (WBC) Count 9.8 10x3/uL (4.8-10.8)
[2023-01-18] MEDS: Meropenem 1 GM in Sodium Chloride 0.9% 100 ML IVPB SCH ×2 (05:35→17:25)
[2023-01-18] MEDS: Phenazopyridine HCl 100 MG TAB PO SCH ×3 (09:31→17:26)
[2023-01-18] MEDS: Magnesium Oxide 400 MG TAB PO SCH (09:32)
[2023-01-18] MEDS: Pantoprazole 40 MG VIAL IVP SCH (09:32)
[2023-01-18] MEDS: Polyethylene Glycol 3350 17 GM Packet PO SCH ×2 (09:32→20:33)
[2023-01-18] MEDS: Lactated Ringer's 1,000 ML IV SCH (09:51)
[2023-01-19] MEDS: Acetaminophen 500 MG TAB PO PRN ×3 (00:59→20:38)
[2023-01-19] MEDS: Lactated Ringer's 1,000 ML IV SCH ×2 (01:00→13:14)
[2023-01-19 03:54] LABS: #Basophils 0.1 thou/uL (0.0-0.2); #Eosinphils 1.2 thou/uL (0.0-0.7); #Monocytes 0.9 thou/uL (0.11-0.59); #Neutrophils 5.1 thou/uL (1.40-6.50); %Basophils 0.7 % (0.0-1.0); %Eosinophils 13.6 % (0.0-10.0); %Lymphocytes 14.7 % (21.0-51.0); %Monocytes 10.3 % (0.0-10.0); %Neutrophils 59.2 % (42.0-75.0); Hematocrit 27.2 % (36.0-47.0); Hemoglobin 8.7 g/dL (12.0-16.0); Mean Corpuscular Hemoglobin 30.9 pg (27.0-31.0); Mean Corpuscular Volume 96.5 fl (78.0-98.0); Mean Platelet Volume 9.2 fL (7.4-10.4); Platelet Count 251 10x3/uL (130-400); RBC Distribution Width 16.7 % (11.5-14.5); Red Blood Cell (RBC) Count 2.82 mill/uL (4.20-5.40); White Blood Cell (WBC) Count 8.6 10x3/uL (4.8-10.8)
[2023-01-19 04:20] LABS: Anion Gap 10 mmol/L (10-20); BUN (Urea Nitrogen) 6 mg/dL (9.8-20.1); Calc. Creatinine Clearance 48 mL/min (70-130); Calcium 7.8 mg/dL (7.8-10.44); Carbon Dioxide 30 mmol/L (23-31); Chloride 106 mmol/L (98-107); Estimated GFR 90; Glucose 96 mg/dL (83-110); Magnesium 1.9 mg/dL (1.6-2.6); Potassium 3.6 mmol/L (3.5-5.1); Sodium 142 mmol/L (136-145)
[2023-01-19] MEDS: Meropenem 1 GM in Sodium Chloride 0.9% 100 ML IVPB SCH ×2 (05:28→19:15)
[2023-01-19] MEDS ORDERED: Magnesium 2 GM/50 ML(in water) 2 GM in Premix 1 BAG IVPB SCH (08:00)
[2023-01-19] MEDS: Polyethylene Glycol 3350 17 GM Packet PO SCH ×2 (09:46→20:33)
[2023-01-19] MEDS: Pantoprazole 40 MG VIAL IVP SCH (09:46)
[2023-01-19] MEDS: Magnesium Oxide 400 MG TAB PO SCH (09:59)
[2023-01-19] MEDS: Phenazopyridine HCl 100 MG TAB PO SCH ×3 (10:00→19:16)
[2023-01-19] MEDS ORDERED: PROPOFOL 200 MG/20 ML VIAL ONE (15:14)
[2023-01-19] MEDS ORDERED: Ondansetron PF 4 MG/2 ML Vial ONE (15:14)
[2023-01-19] MEDS ORDERED: PHENYLEPHRINE-NS 100 MCG/ML 10 ML SYRINGE ONE (15:14)
[2023-01-19] MEDS ORDERED: Dexamethasone 20 MG/5 ML VIAL ONE (15:14)
[2023-01-19] MEDS ORDERED: fentaNYL PF 100 MCG/2 ML SYRINGE ONE (15:20)
[2023-01-19] MEDS ORDERED: Iopamidol 0 ML ONE (15:34)
[2023-01-20] MEDS ORDERED: Sodium Chloride 0.9% 500 ML IV SCH (00:15)
[2023-01-20 07:02] LABS: #Monocytes 0.1 thou/uL (0.11-0.59); #Neutrophils 4.3 thou/uL (1.40-6.50); %Lymphocytes 7.3 % (21.0-51.0); %Monocytes 2.1 % (0.0-10.0); %Neutrophils 88.9 % (42.0-75.0); Hemoglobin 9.1 g/dL (12.0-16.0); Mean Corpuscular HGB CONC 31.4 g/dL (32.0-36.0); Mean Corpuscular Volume 98.6 fl (78.0-98.0); Mean Platelet Volume 9.1 fL (7.4-10.4); Platelet Count 252 10x3/uL (130-400); RBC Distribution Width 16.5 % (11.5-14.5); Red Blood Cell (RBC) Count 2.94 mill/uL (4.20-5.40); White Blood Cell (WBC) Count 4.8 10x3/uL (4.8-10.8)
[2023-01-20] MEDS: Polyethylene Glycol 3350 17 GM Packet PO SCH ×2 (10:11→20:26)
[2023-01-20] MEDS: Acetaminophen 500 MG TAB PO PRN ×2 (10:11→21:14)
[2023-01-20] MEDS: Phenazopyridine HCl 100 MG TAB PO SCH ×3 (10:11→19:29)
[2023-01-20] MEDS: Pantoprazole 40 MG VIAL IVP SCH (10:12)
[2023-01-20] MEDS: Magnesium Oxide 400 MG TAB PO SCH (10:12)
[2023-01-20] MEDS ORDERED: Ciprofloxacin 500 MG TAB PO SCH (19:30)
[2023-01-21] MEDS ORDERED: hydrOXYzine 10 MG TAB PO SCH (01:30)
[2023-01-21] MEDS ORDERED: Ciprofloxacin 500 MG TAB PO SCH (06:00)
[2023-01-21] MEDS: Phenazopyridine HCl 100 MG TAB PO SCH ×3 (08:43→17:32)
[2023-01-21] MEDS: Acetaminophen 500 MG TAB PO PRN ×2 (08:43→15:51)
[2023-01-21] MEDS: Polyethylene Glycol 3350 17 GM Packet PO SCH (08:43)
[2023-01-21] MEDS: Magnesium Oxide 400 MG TAB PO SCH (08:43)
[2023-01-21] MEDS: Pantoprazole 40 MG VIAL IVP SCH (08:43)
[2023-01-21 15:51] VITALS: TEMP 98.7
[2023-01-21 16:09] VITALS: BP 135/75
== END 2023-01-21 19:24 | disposition home or self-care (01) | DRG 853 ==
LOC: 2NO 09:34
PROVIDERS: ADMIT Family Medicine; ATTEND Hospitalist
PROC: 02HV33Z Insertion of Infusion Device into Superior Vena Cava, Percutaneous Approach (ICD-10-PCS; principal; 2023-01-16)
PROC: B5181ZA Fluoroscopy of Superior Vena Cava using Low Osmolar Contrast, Guidance (ICD-10-PCS; 2023-01-16)
PROC: B548ZZA Ultrasonography of Superior Vena Cava, Guidance (ICD-10-PCS; 2023-01-16)
PROC: 0T778DZ Dilation of Left Ureter with Intraluminal Device, Via Natural or Artificial Opening Endoscopic (ICD-10-PCS; 2023-01-19)
PROC: 0TCB8ZZ Extirpation of Matter from Bladder, Via Natural or Artificial Opening Endoscopic (ICD-10-PCS; 2023-01-19)
PROC: 0TC48ZZ Extirpation of Matter from Left Kidney Pelvis, Via Natural or Artificial Opening Endoscopic (ICD-10-PCS; 2023-01-19)
PROC: BT171ZZ Fluoroscopy of Left Ureter using Low Osmolar Contrast (ICD-10-PCS; 2023-01-20)
PROC: 0TP9XDZ Removal of Intraluminal Device from Ureter, External Approach (ICD-10-PCS; 2023-01-20)
DX: A41.51 Sepsis due to Escherichia coli [E. coli] (principal); G93.41 Metabolic encephalopathy; E87.1 Hypo-osmolality and hyponatremia; N17.9 Acute kidney failure, unspecified; I24.89 Other forms of acute ischemic heart disease; Z16.24 Resistance to multiple antibiotics; N13.6 Pyonephrosis; E86.0 Dehydration; I25.10 Atherosclerotic heart disease of native coronary artery without angina pectoris; E83.39 Other disorders of phosphorus metabolism; E83.42 Hypomagnesemia; K59.00 Constipation, unspecified; N21.0 Calculus in bladder; Z95.1 Presence of aortocoronary bypass graft; Z98.890 Other specified postprocedural states; Z98.51 Tubal ligation status; Z79.899 Other long term (current) drug therapy; M41.9 Scoliosis, unspecified
CPT/HCPCS: 36415; 36416; 36569; 74018; 74420; 80048; 80053; 80069; 83605; 83735; 85025; 93005; 93010; C1751; C1769; C2617; C9113; J1100; J2185; J2272; J2405; J2704; J3475; J3490; J7030; J7050; J7120; Q9967

== ENCOUNTER 2024-01-15 22:52 | Inpatient (IN) | payer MEDICARE ==
[2024-01-16] MEDS ORDERED: Acetaminophen 650 MG Suppository PR PRN (00:31)
[2024-01-16] MEDS ORDERED: Ondansetron PF 4 MG/2 ML Vial IVP PRN (00:31)
[2024-01-16] MEDS ORDERED: Ondansetron ODT 4 MG TAB PO PRN (00:31)
[2024-01-16] MEDS ORDERED: Calcium Carbonate 500 MG ChewTAB PO PRN (00:31)
[2024-01-16] MEDS: Lactated Ringer's 500 ML IV SCH (01:54)
[2024-01-16 04:06] VITALS: BMI 17.7
[2024-01-16 04:38] LABS: #Basophils 0.03 10x3/uL (0.0-0.2); %Basophils 0.5 % (0.0-1.0); %Eosinophils 1.7 % (0.0-10.0); %Monocytes 16.3 % (0.0-10.0); %Neutrophils 62.7 % (42.0-75.0); Hematocrit 29.5 % (36.0-47.0); Hemoglobin 8.7 g/dL (12.0-16.0); Mean Corpuscular HGB CONC 29.5 g/dL (32.0-36.0); Mean Corpuscular Hemoglobin 26.4 pg (27.0-31.0); Mean Corpuscular Volume 89.7 fL (78.0-98.0); Mean Platelet Volume 8.8 fL (7.4-10.4); Platelet Count 342 10x3/uL (130-400); RBC Distribution Width 17.6 % (11.5-14.5); Red Blood Cell (RBC) Count 3.29 mill/uL (4.20-5.40)
[2024-01-16 04:52] LABS: ALT (SGPT) 10 U/L (8-55); AST (SGOT) 11 U/L (5-34); Albumin 1.8 g/dL (3.4-4.8); Alkaline Phosphatase 108 U/L (40-110); Anion Gap 10 mmol/L (10-20); BUN (Urea Nitrogen) 11 mg/dL (9.8-20.1); Bilirubin, Total 0.2 mg/dL (0.2-1.2); Calc. Creatinine Clearance 33 mL/min (70-130); Calcium 7.9 mg/dL (7.8-10.44); Carbon Dioxide 28 mmol/L (23-31); Chloride 107 mmol/L (98-107); Estimated GFR 75; Globulin 2.9 g/dL (2.4-3.5); Glucose 82 mg/dL (83-110); Potassium 2.9 mmol/L (3.5-5.1); Protein, Total 4.7 g/dL (5.8-8.1); Sodium 142 mmol/L (136-145)
[2024-01-16] MEDS ORDERED: Electrolyte Replacement Protocol 1 EACH FS PRN (05:28)
[2024-01-16] MEDS: Potassium Chloride 20 MEQ TAB PO SCH (06:47)
[2024-01-16] MEDS: Acetaminophen 325 MG TAB PO SCH (06:47)
[2024-01-16] MEDS ORDERED: HYDROcodone/Acetaminophen 5/325 mg Tablet PO PRN (09:03)
[2024-01-16] MEDS: Famotidine/PF 20 mg/2ml Vial SLOW IVP SCH (09:58)
[2024-01-16] MEDS: Cefepime 1 GM in Sodium Chloride 0.9% 100 ML IVPB SCH (09:58)
[2024-01-16] MEDS: Famotidine 20 MG TAB PO SCH (09:58)
[2024-01-16 10:08] VITALS: BMI 17.7
[2024-01-16] MEDS: HYDROcodone/Acetaminophen 5/325 mg Tablet PO PRN (10:16)
[2024-01-17 08:23] LABS: #Basophils 0.05 10x3/uL (0.0-0.2); %Basophils 1.1 % (0.0-1.0); %Eosinophils 4.6 % (0.0-10.0); %Lymphocytes 17.9 % (21.0-51.0); %Monocytes 12.4 % (0.0-10.0); %Neutrophils 63.3 % (42.0-75.0); Hematocrit 35.4 % (36.0-47.0); Hemoglobin 10.3 g/dL (12.0-16.0); Mean Corpuscular HGB CONC 29.1 g/dL (32.0-36.0); Mean Corpuscular Hemoglobin 26.7 pg (27.0-31.0); Mean Corpuscular Volume 91.7 fL (78.0-98.0); Mean Platelet Volume 8.9 fL (7.4-10.4); Platelet Count 420 10x3/uL (130-400); RBC Distribution Width 17.8 % (11.5-14.5); Red Blood Cell (RBC) Count 3.86 mill/uL (4.20-5.40)
[2024-01-17 08:40] LABS: Anion Gap 15 mmol/L (10-20); BUN (Urea Nitrogen) 10 mg/dL (9.8-20.1); Calc. Creatinine Clearance 33 mL/min (70-130); Calcium 8.4 mg/dL (7.8-10.44); Carbon Dioxide 23 mmol/L (23-31); Chloride 111 mmol/L (98-107); Estimated GFR 76; Glucose 74 mg/dL (83-110); Magnesium 1.9 mg/dL (1.6-2.6); Potassium 4.5 mmol/L (3.5-5.1); Sodium 144 mmol/L (136-145)
[2024-01-17] MEDS: Magnesium 2 GM/50 ML(in water) 2 GM in Premix 1 BAG IVPB SCH (10:07)
[2024-01-17] MEDS ORDERED: Polyethylene Glycol 3350 17 GM Packet PO PRN (15:31)
[2024-01-18 04:21] LABS: #Basophils 0.04 10x3/uL (0.0-0.2); %Eosinophils 7.4 % (0.0-10.0); %Lymphocytes 21.5 % (21.0-51.0); %Monocytes 17.3 % (0.0-10.0); %Neutrophils 51.8 % (42.0-75.0); Hematocrit 26.5 % (36.0-47.0); Hemoglobin 7.5 g/dL (12.0-16.0); Mean Corpuscular HGB CONC 28.3 g/dL (32.0-36.0); Mean Corpuscular Hemoglobin 26.6 pg (27.0-31.0); Platelet Count 308 10x3/uL (130-400); RBC Distribution Width 17.4 % (11.5-14.5); Red Blood Cell (RBC) Count 2.82 mill/uL (4.20-5.40)
[2024-01-18 04:33] LABS: Anion Gap 9 mmol/L (10-20); BUN (Urea Nitrogen) 11 mg/dL (9.8-20.1); Calc. Creatinine Clearance 37 mL/min (70-130); Calcium 7.3 mg/dL (7.8-10.44); Carbon Dioxide 23 mmol/L (23-31); Chloride 110 mmol/L (98-107); Estimated GFR 84; Glucose 74 mg/dL (83-110); Potassium 4.1 mmol/L (3.5-5.1); Sodium 138 mmol/L (136-145)
[2024-01-18 08:25] LABS: Iron 18 ug/dL (50-170); Iron Binding Capacity, Total 110 mcg/dL (265-497)
[2024-01-18] MEDS: cefTRIAXone\\ROCEPHIN 1 GM in Sodium Chloride 0.9% 100 ML IVPB SCH (09:41)
[2024-01-19 05:15] LABS: #Basophils 0.05 10x3/uL (0.0-0.2); %Eosinophils 6.4 % (0.0-10.0); %Lymphocytes 19.9 % (21.0-51.0); %Monocytes 14.4 % (0.0-10.0); %Neutrophils 57.3 % (42.0-75.0); Hematocrit 31.4 % (36.0-47.0); Hemoglobin 9.3 g/dL (12.0-16.0); Mean Corpuscular HGB CONC 29.6 g/dL (32.0-36.0); Mean Platelet Volume 8.8 fL (7.4-10.4); Platelet Count 357 10x3/uL (130-400); RBC Distribution Width 17.3 % (11.5-14.5); Red Blood Cell (RBC) Count 3.45 mill/uL (4.20-5.40)
[2024-01-19] MEDS ORDERED: Electrolyte Replacement Protocol FS PRN (07:00)
[2024-01-19] MEDS: Sodium Ferric Gluconate 250 MG in Sodium Chloride 0.9% 250 ML 250 ML IVPB SCH (11:11)
[2024-01-21 06:34] LABS: Hematocrit 27.7 % (36.0-47.0); Hemoglobin 7.8 g/dL (12.0-16.0); Mean Corpuscular HGB CONC 28.2 g/dL (32.0-36.0); Mean Corpuscular Hemoglobin 26.8 pg (27.0-31.0); Mean Corpuscular Volume 95.2 fL (78.0-98.0); Mean Platelet Volume 9.1 fL (7.4-10.4); Platelet Count 315 10x3/uL (130-400); RBC Distribution Width 17.3 % (11.5-14.5); Red Blood Cell (RBC) Count 2.91 mill/uL (4.20-5.40)
[2024-01-21 07:11] LABS: Anion Gap 11 mmol/L (10-20); BUN (Urea Nitrogen) 12 mg/dL (9.8-20.1); Calc. Creatinine Clearance 37 mL/min (70-130); Calcium 7.9 mg/dL (7.8-10.44); Carbon Dioxide 23 mmol/L (23-31); Chloride 108 mmol/L (98-107); Estimated GFR 85; Glucose 100 mg/dL (83-110); Magnesium 1.8 mg/dL (1.6-2.6); Potassium 3.8 mmol/L (3.5-5.1); Sodium 138 mmol/L (136-145)
[2024-01-21 07:16] LABS: Eosinophils 3 % (0-10); Hypochromia SLIGHT = 6-15 cells HPF (0-5); Large Platelets 3.9 % (0-5); Lymphocytes 18 % (21-51); Monocytes 11 % (0-10); Neutrophil 67 % (42-75); Platelet Adequacy Comment Platelets Normal
[2024-01-21] MEDS: Magnesium 2 GM/50 ML(in water) 2 GM in Premix 1 BAG IVPB SCH (08:43)
[2024-01-21] MEDS ORDERED: GENTAMICIN IVPB SCH ×2 (12:00)
[2024-01-21] MEDS ORDERED: SODIUM CHLORIDE 0.9% IVPB SCH ×2 (12:00)
[2024-01-21] MEDS ORDERED: Non-Formulary Item 1 EACH (Polyethylene Glycol 3350 [Miralax] 119 GM Bottle) PO SCH (21:00)
[2024-01-22 06:31] LABS: #Basophils 0.07 10x3/uL (0.0-0.2); %Basophils 1.1 % (0.0-1.0); %Eosinophils 4.9 % (0.0-10.0); %Lymphocytes 17.4 % (21.0-51.0); %Neutrophils 59.4 % (42.0-75.0); Hematocrit 32.5 % (36.0-47.0); Hemoglobin 9.2 g/dL (12.0-16.0); Mean Corpuscular HGB CONC 28.3 g/dL (32.0-36.0); Mean Corpuscular Hemoglobin 27.2 pg (27.0-31.0); Mean Corpuscular Volume 96.2 fL (78.0-98.0); Platelet Count 334 10x3/uL (130-400); RBC Distribution Width 18.1 % (11.5-14.5); Red Blood Cell (RBC) Count 3.38 mill/uL (4.20-5.40)
[2024-01-22] MEDS ORDERED: Sodium Chloride 0.9% 0 ML ONE (06:51)
[2024-01-22] MEDS ORDERED: cefTRIAXone (ROCEPHIN) 1 GM VIAL ONE (06:51)
[2024-01-22] MEDS ORDERED: Iopamidol 15 ML ONE (07:08)
[2024-01-22] MEDS ORDERED: Lidocaine 1% PF 5 ML VIAL ONE (07:15)
[2024-01-22] MEDS ORDERED: Rocuronium Bromide 10 MG/ML (10ML VIAL) ONE (07:15)
[2024-01-22] MEDS ORDERED: PHENYLEPHRINE-NS 100 MCG/ML 10 ML SYRINGE ONE (07:15)
[2024-01-22] MEDS ORDERED: fentaNYL 50 mcg/mL 1 mL Vial ONE (07:15)
[2024-01-22] MEDS ORDERED: PROPOFOL 20 ML ONE (07:15)
[2024-01-22] MEDS ORDERED: Dexamethasone 4 mg/ml Vial ONE (07:15)
[2024-01-22] MEDS ORDERED: Ondansetron PF 4 MG/2 ML Vial ONE (07:15)
[2024-01-22] MEDS ORDERED: Dexmedetomidine 200 MCG/2 ML VIAL ONE (07:15)
[2024-01-22] MEDS ORDERED: Glycopyrrolate 0.2 MG/ML 5 ML SYRINGE ONE (07:16)
[2024-01-22] MEDS ORDERED: ePHEDrine Sulfate 50 MG/10 ML VIAL ONE (09:11)
[2024-01-22] MEDS ORDERED: SUGAMMADEX SODIUM 200 MG/2 ML VIAL ONE (09:55)
[2024-01-22] MEDS: Polyethylene Glycol 3350 17 GM Packet PO SCH (12:01)
[2024-01-22] MEDS: Gentamicin Sulfate 80 MG in Premix 1 BAG IVPB SCH (12:41)
[2024-01-23 06:09] LABS: #Basophils Less than 0.03 10x3/uL (0.0-0.2); #Eosinophils Less than 0.03 10x3/uL (0.0-0.7); %Basophils 0.2 % (0.0-1.0); %Monocytes 7.3 % (0.0-10.0); %Neutrophils 82.5 % (42.0-75.0); Hematocrit 28.2 % (36.0-47.0); Mean Corpuscular HGB CONC 28.4 g/dL (32.0-36.0); Mean Corpuscular Hemoglobin 27.5 pg (27.0-31.0); Mean Corpuscular Volume 96.9 fL (78.0-98.0); Mean Platelet Volume 9.4 fL (7.4-10.4); Platelet Count 334 10x3/uL (130-400); RBC Distribution Width 18.5 % (11.5-14.5); Red Blood Cell (RBC) Count 2.91 mill/uL (4.20-5.40)
[2024-01-23 06:26] LABS: Anion Gap 13 mmol/L (10-20); BUN (Urea Nitrogen) 13 mg/dL (9.8-20.1); Calc. Creatinine Clearance 31 mL/min (70-130); Calcium 8.6 mg/dL (7.8-10.44); Carbon Dioxide 26 mmol/L (23-31); Chloride 107 mmol/L (98-107); Estimated GFR 69; Glucose 119 mg/dL (83-110); Potassium 4.8 mmol/L (3.5-5.1); Sodium 141 mmol/L (136-145)
[2024-01-23 11:37] VITALS: BP 136/81; TEMP 98
== END 2024-01-23 14:52 | disposition home or self-care (01) | DRG 660 ==
LOC: 2NO 01-16 00:10 → T4-A 01-18 19:32
PROVIDERS: ADMIT Student in an Organized Health Care Education/Training Program; ATTEND Family Medicine
PROC: 0T778DZ Dilation of Left Ureter with Intraluminal Device, Via Natural or Artificial Opening Endoscopic (ICD-10-PCS; principal; 2024-01-22)
PROC: 0TC78ZZ Extirpation of Matter from Left Ureter, Via Natural or Artificial Opening Endoscopic (ICD-10-PCS; 2024-01-22)
PROC: 0TP98DZ Removal of Intraluminal Device from Ureter, Via Natural or Artificial Opening Endoscopic (ICD-10-PCS; 2024-01-22)
DX: T83.592A Infection and inflammatory reaction due to indwelling ureteral stent, initial encounter (principal); N13.6 Pyonephrosis; D50.9 Iron deficiency anemia, unspecified; I25.10 Atherosclerotic heart disease of native coronary artery without angina pectoris; B96.20 Unspecified Escherichia coli [E. coli] as the cause of diseases classified elsewhere; E87.6 Hypokalemia; Z95.1 Presence of aortocoronary bypass graft; Z98.51 Tubal ligation status; Z98.891 History of uterine scar from previous surgery
CPT/HCPCS: 36415; 36416; 80048; 80053; 82274; 82728; 83540; 83550; 83735; 85025; C1747; C2617; J0692; J0696; J1100; J1580; J2405; J2704; J2916; J3010; J3475; J3490; J7050; J7120; Q9967